=== PATIENT | male | born 1990 | race Caucasian/White ===

== ENCOUNTER 2018-05-23 22:12 | Inpatient (IN) | payer BC ==
[2018-05-23] MEDS ORDERED: HALOPERIDOL 5 MG TABLET PO PRN (23:00)
[2018-05-23] MEDS ORDERED: CLON1 PO (23:19)
[2018-05-23] MEDS ORDERED: GABA-533 PO (23:19)
[2018-05-23] MEDS ORDERED: FLUO-191 PO (23:19)
[2018-05-24] VITALS: BP_SYST 130; BP_SYST 137; BP_DIAS 82; BP_DIAS 84
[2018-05-24] MEDS: LORazepam 2 MG TABLET PO PRN ×3 (00:16→17:11)
[2018-05-24 01:00] VITALS: BP 128/82
[2018-05-24] MEDS ORDERED: LOPERAMIDE HCL 2 MG CAPSULE PO PRN (01:15)
[2018-05-24] MEDS ORDERED: ONDANSETRON HCL 4 MG TABLET PO PRN (01:15)
[2018-05-24] MEDS ORDERED: IBUPROFEN 400 MG TABLET PO PRN (01:15)
[2018-05-24] MEDS ORDERED: MAGNESIUM HYDROXIDE SUSPENSION 30 ML UDCUP PO PRN (01:15)
[2018-05-24] MEDS ORDERED: MAG HYDROX/AL HYDROX/SIMETH ES 30 ML SUSPENSION UDCUP PO PRN (01:15)
[2018-05-24] MEDS ORDERED: PETROLATUM,WHITE 71 GM JELLY TP PRN (01:15)
[2018-05-24] MEDS ORDERED: GuaiFENesin/D-METHORPHAN [SUGAR-FREE] 200-20MG/10 ML SYRUP UDCUP PO PRN (01:15)
[2018-05-24] MEDS ORDERED: ALBUTEROL SULFATE HFA 90 MCG/PUFF 8 GM INHALER IH PRN (01:15)
[2018-05-24] MEDS ORDERED: DOCUSATE SODIUM 100 MG CAPSULE PO PRN (01:15)
[2018-05-24 08:15] VITALS: BP 133/76
[2018-05-24 08:26] LABS: EOSINOPHILS % (AUTO) 3.2 % (1.0-6.0); HEMATOCRIT 45.4 % (41-53); HEMOGLOBIN 15.3 g/dL (13.5-17.5); LYMPHOCYTES # (AUTO) 3.6 K/uL (1.0-4.8); LYMPHOCYTES % (AUTO) 38.1 % (22.0-44.0); MEAN CORPUSCULAR HEMOGLOBIN 31.4 pg (26.0-34.0); MEAN CORPUSCULAR HGB CONC 33.7 G/dL (31.0-37.0); MEAN CORPUSCULAR VOLUME 93 fL (80-100); MONOCYTES # (AUTO) 1.2 K/uL (0.1-1.0); MONOCYTES % (AUTO) 12.8 % (2.0-9.0); NEUTROPHILS # (AUTO) 4.3 K/uL (1.8-7.7); NEUTROPHILS % (AUTO) 45.9 % (40.0-70.0); PLATELET COUNT (AUTO) 267 K/uL (150-450); RED BLOOD CELL COUNT(AUTO) 4.87 MIL/uL (4.50-5.90); RED CELL DISTRIBUTION WIDTH 14.7 % (11.5-14.5)
[2018-05-24 08:33] LABS: HEMOGLOBIN A1C 4.9 % (4.5-6.2)
[2018-05-24 08:39] LABS: ALANINE AMINOTRANSFERASE 26 U/L (12-78); ALBUMIN 3.6 g/dL (3.4-5.0); ALKALINE PHOSPHATASE 54 U/L (46-116); ANION GAP 7 mmol/L (8-16); ASPARTATE AMINOTRANSFERASE 23 U/L (15-37); BILIRUBIN,TOTAL 0.4 mg/dL (0.1-1.0); CALCIUM, TOTAL 8.9 mg/dL (8.8-10.5); CARBON DIOXIDE 30 mmol/L (22-29); CHLORIDE 103 mmol/L (98-107); CHOL/HDL RATIO 4.8 (4.2-7.3); CHOLESTEROL 223 mg/dL (131-200); CREATININE 0.93 mg/dL (0.60-1.30); FREE T4 (FREE THYROXINE) 1.38 ng/dL (0.76-1.46); GLOMERULAR FILTR. RATE CALC > 60 mL/min (>60); GLUCOSE,RANDOM 92 mg/dL (70-110); HDL CHOLESTEROL 46 mg/dL (40-60); LDL CHOL (CALC.) 157 mg/dL (0-130); POTASSIUM 3.7 mmol/L (3.5-5.1); SODIUM SERUM 140 mmol/L (136-145); THYROID STIMULATING HORMONE 3.85 uIU/mL (0.36-3.74); TOTAL PROTEIN, SERUM 7.3 g/dL (6.4-8.2); TRIGLYCERIDES 100 mg/dL (15-150); UREA NITROGEN, BLOOD 16 mg/dL (7-18)
[2018-05-24] MEDS: FLUoxetine HCL 20 MG CAPSULE PO SCH (10:47)
[2018-05-24 16:00] VITALS: BP 140/79
[2018-05-24] MEDS: GABAPENTIN 400 MG CAPSULE PO SCH (16:38)
[2018-05-24] MEDS: QUEtiapine FUMARATE 100 MG TABLET PO SCH (20:33)
[2018-05-24] MEDS: SIMVASTATIN 10 MG TABLET PO SCH (20:33)
[2018-05-24] MEDS: HydrOXYzine PAMOATE 25 MG CAPSULE PO SCH (20:34)
[2018-05-25] VITALS (9 sets, daily range): BP systolic 120–139; BP diastolic 70–98
[2018-05-25] MEDS: FLUoxetine HCL 20 MG CAPSULE PO SCH (08:40)
[2018-05-25] MEDS: GABAPENTIN 400 MG CAPSULE PO SCH ×2 (08:40→16:33)
[2018-05-25] MEDS: LORazepam 2 MG TABLET PO PRN ×3 (08:50→19:27)
[2018-05-25] MEDS: ACETAMINOPHEN 325 MG TABLET PO PRN (10:42)
[2018-05-25] MEDS: QUEtiapine FUMARATE 100 MG TABLET PO SCH (20:34)
[2018-05-25] MEDS: SIMVASTATIN 10 MG TABLET PO SCH (20:35)
[2018-05-25] MEDS: HydrOXYzine PAMOATE 25 MG CAPSULE PO SCH (20:35)
[2018-05-25] MEDS: ZOLPIDEM TARTRATE 10 MG TABLET PO PRN (20:51)
[2018-05-26] VITALS (8 sets, daily range): BP systolic 110–137; BP diastolic 66–84
[2018-05-26] MEDS: LORazepam 2 MG TABLET PO PRN ×4 (03:29→17:09)
[2018-05-26] MEDS: FLUoxetine HCL 20 MG CAPSULE PO SCH (08:49)
[2018-05-26] MEDS: GABAPENTIN 400 MG CAPSULE PO SCH ×2 (08:49→17:06)
[2018-05-26 09:10] LABS: AMPHET/METH SCREEN,URINE NEGATIVE (NEGATIVE); BARBITURATE SCREEN, URINE NEGATIVE (NEGATIVE); BENZODIAZEPINES SCREEN,URINE POSITIVE (NEGATIVE); CANNABINOID SCREEN,URINE NEGATIVE (NEGATIVE); COCAINE SCREEN,URINE NEGATIVE (NEGATIVE); METHADONE SCREEN, URINE NEGATIVE (NEGATIVE); OPIATE SCREEN,URINE NEGATIVE (NEGATIVE); PHENCYCLIDINE SCREEN,URINE NEGATIVE (NEGATIVE)
[2018-05-26 09:35] LABS: APPEARANCE,URINE CLOUDY (CLEAR); BILIRUBIN,URINE NEGATIVE (NEGATIVE); GLUCOSE, URINE (UA) NEGATIVE (NEGATIVE); KETONES,URINE NEGATIVE (NEGATIVE); LEUKOCYTE ESTERASE ,URINE NEGATIVE (NEGATIVE); NITRATE,URINE NEGATIVE (NEGATIVE); OCCULT BLOOD,URINE NEGATIVE (NEGATIVE); PH,URINE 7.5 (5.0-8.0); PROTEIN,URINE POS 1+ (NEGATIVE); UROBILINOGEN,URINE 0.2 mg/dL (<=1.0)
[2018-05-26 09:51] LABS: AMORPHOUS SEDIMENT,UR Many /LPF (None Seen); BACTERIA,URINE None Seen /HPF (None Seen); RBC,URINE None Seen /HPF (0-2); SQUAMOUS EPITHELIAL CELL,UR Rare /LPF (None Seen); WBC,URINE 0-2 /HPF (0-5)
[2018-05-26] MEDS: BUPRENORPHINE HCL/NALOXONE HCL 2-0.5 MG SUBLINGUAL TABLET SL SCH (11:24)
[2018-05-26] MEDS: NICOTINE 14 MG/24 HOUR PATCH TD PRN (14:03)
[2018-05-26] MEDS: QUEtiapine FUMARATE 100 MG TABLET PO SCH (21:06)
[2018-05-26] MEDS: ZOLPIDEM TARTRATE 10 MG TABLET PO PRN (21:06)
[2018-05-26] MEDS: HydrOXYzine PAMOATE 25 MG CAPSULE PO SCH (21:06)
[2018-05-26] MEDS: SIMVASTATIN 10 MG TABLET PO SCH (21:06)
[2018-05-27 00:11] VITALS: BP 115/66
[2018-05-27] MEDS: LORazepam 2 MG TABLET PO PRN ×4 (04:16→20:16)
[2018-05-27 08:28] VITALS: BP 102/60
[2018-05-27] MEDS: GABAPENTIN 400 MG CAPSULE PO SCH ×2 (08:36→16:32)
[2018-05-27] MEDS: FLUoxetine HCL 20 MG CAPSULE PO SCH (08:36)
[2018-05-27] MEDS: BUPRENORPHINE HCL/NALOXONE HCL 2-0.5 MG SUBLINGUAL TABLET SL SCH (08:37)
[2018-05-27 10:52] VITALS: BP 128/84
[2018-05-27] MEDS: NICOTINE 14 MG/24 HOUR PATCH TD PRN (11:44)
[2018-05-27 16:05] VITALS: BP_SYST 112; BP_SYST 73; BP_DIAS 73
[2018-05-27] MEDS: BusPIRone HCL 10 MG TABLET PO SCH (17:09)
[2018-05-27] MEDS: QUEtiapine FUMARATE 100 MG TABLET PO SCH (20:35)
[2018-05-27] MEDS: SIMVASTATIN 10 MG TABLET PO SCH (20:35)
[2018-05-27] MEDS: ZOLPIDEM TARTRATE 10 MG TABLET PO PRN (21:07)
[2018-05-28] VITALS (9 sets, daily range): BP systolic 105–163; BP diastolic 63–93
[2018-05-28] MEDS: LORazepam 2 MG TABLET PO PRN ×3 (04:41→21:32)
[2018-05-28] MEDS: GABAPENTIN 400 MG CAPSULE PO SCH ×2 (08:30→18:41)
[2018-05-28] MEDS: BUPRENORPHINE HCL/NALOXONE HCL 2-0.5 MG SUBLINGUAL TABLET SL SCH (08:30)
[2018-05-28] MEDS: BusPIRone HCL 10 MG TABLET PO SCH ×2 (08:30→18:41)
[2018-05-28] MEDS: FLUoxetine HCL 20 MG CAPSULE PO SCH (08:32)
[2018-05-28] MEDS: ACETAMINOPHEN 325 MG TABLET PO PRN (12:28)
[2018-05-28] MEDS: CloNIDine HCL 0.1 MG TABLET PO PRN (12:28)
[2018-05-28] MEDS ORDERED: RIT20 PO (15:24)
[2018-05-28] MEDS: NICOTINE 14 MG/24 HOUR PATCH TD PRN (19:47)
[2018-05-28] MEDS: SIMVASTATIN 10 MG TABLET PO SCH (20:38)
[2018-05-28] MEDS: QUEtiapine FUMARATE 100 MG TABLET PO SCH (20:39)
[2018-05-28] MEDS: ZOLPIDEM TARTRATE 10 MG TABLET PO PRN (22:16)
[2018-05-29 04:24] VITALS: BP 130/82
[2018-05-29 08:00] VITALS: BP 109/60
[2018-05-29 08:13] VITALS: BP 109/60
[2018-05-29] MEDS: BusPIRone HCL 10 MG TABLET PO SCH ×2 (08:25→16:21)
[2018-05-29] MEDS: FLUoxetine HCL 20 MG CAPSULE PO SCH (08:25)
[2018-05-29] MEDS: BUPRENORPHINE HCL/NALOXONE HCL 2-0.5 MG SUBLINGUAL TABLET SL SCH (08:25)
[2018-05-29] MEDS: GABAPENTIN 400 MG CAPSULE PO SCH ×2 (08:25→16:21)
[2018-05-29] MEDS: NICOTINE 14 MG/24 HOUR PATCH TD SCH (08:26)
[2018-05-29] MEDS: LORazepam 2 MG TABLET PO PRN ×2 (10:39→16:51)
[2018-05-29] MEDS: BuPROPion HCL 100 MG SR TABLET PO SCH (12:03)
[2018-05-29 15:40] VITALS: BP 164/100
[2018-05-29] MEDS ORDERED: MAG HYDROX/AL HYDROX/SIMETH ES 30 ML SUSPENSION UDCUP PO ONE (15:45)
[2018-05-29] MEDS: CloNIDine HCL 0.1 MG TABLET PO PRN (15:51)
[2018-05-29 16:40] VITALS: BP 139/89
[2018-05-29 16:49] VITALS: BP 139/89
[2018-05-29] MEDS: QUEtiapine FUMARATE 100 MG TABLET PO SCH (20:29)
[2018-05-29] MEDS: SIMVASTATIN 10 MG TABLET PO SCH (20:29)
[2018-05-29] MEDS: ZOLPIDEM TARTRATE 10 MG TABLET PO PRN (20:51)
[2018-05-30 00:10] VITALS: BP 110/70
[2018-05-30] MEDS: LORazepam 2 MG TABLET PO PRN ×4 (00:34→23:50)
[2018-05-30 08:00] VITALS: BP 100/66
[2018-05-30 08:04] VITALS: BP 100/66
[2018-05-30] MEDS: GABAPENTIN 400 MG CAPSULE PO SCH ×2 (09:01→16:58)
[2018-05-30] MEDS: BUPRENORPHINE HCL/NALOXONE HCL 2-0.5 MG SUBLINGUAL TABLET SL SCH (09:01)
[2018-05-30] MEDS: FLUoxetine HCL 20 MG CAPSULE PO SCH (09:01)
[2018-05-30] MEDS: BuPROPion HCL 100 MG SR TABLET PO SCH (09:01)
[2018-05-30] MEDS: BusPIRone HCL 10 MG TABLET PO SCH ×2 (09:01→16:58)
[2018-05-30] MEDS: NICOTINE 14 MG/24 HOUR PATCH TD SCH (09:02)
[2018-05-30 16:05] VITALS: BP_SYST 127; BP_SYST 130; BP_DIAS 61; BP_DIAS 69
[2018-05-30 16:09] VITALS: BP 127/69
[2018-05-30] MEDS: QUEtiapine FUMARATE 100 MG TABLET PO SCH (20:02)
[2018-05-30] MEDS: SIMVASTATIN 10 MG TABLET PO SCH (20:02)
[2018-05-30] MEDS: ZOLPIDEM TARTRATE 10 MG TABLET PO PRN (20:28)
[2018-05-30 23:48] VITALS: BP 114/72
[2018-05-31] MEDS ORDERED: ACETAMINOPHEN 325 MG TABLET PO PRN (01:15)
[2018-05-31 05:36] VITALS: BP 110/68
[2018-05-31 08:19] VITALS: BP 111/68
[2018-05-31] MEDS: BusPIRone HCL 10 MG TABLET PO SCH (08:41)
[2018-05-31] MEDS: BuPROPion HCL 100 MG SR TABLET PO SCH (08:41)
[2018-05-31] MEDS: FLUoxetine HCL 20 MG CAPSULE PO SCH (08:41)
[2018-05-31] MEDS: GABAPENTIN 400 MG CAPSULE PO SCH (08:41)
[2018-05-31] MEDS: BUPRENORPHINE HCL/NALOXONE HCL 2-0.5 MG SUBLINGUAL TABLET SL SCH (08:42)
[2018-05-31] MEDS: NICOTINE 14 MG/24 HOUR PATCH TD SCH (08:42)
[2018-05-31] MEDS ORDERED: BUPR100SR PO (11:32)
[2018-05-31] MEDS ORDERED: QUET50TA PO (11:32)
[2018-05-31] MEDS ORDERED: SIMV-259 PO (11:32)
[2018-05-31] MEDS ORDERED: BUSP10TA23 PO (11:32)
== END 2018-05-31 13:15 | disposition home or self-care (01) | DRG 885 ==
LOC: B2X 22:55
PROVIDERS: ADMIT Psychiatry & Neurology Psychiatry; ATTEND Psychiatry & Neurology Psychiatry
DX: F33.2 Major depressive disorder, recurrent severe without psychotic features (principal); F11.20 Opioid dependence, uncomplicated; R45.851 Suicidal ideations; E78.5 Hyperlipidemia, unspecified; F41.9 Anxiety disorder, unspecified; F19.10 Other psychoactive substance abuse, uncomplicated; R10.13 Epigastric pain; R45.87 Impulsiveness; F12.90 Cannabis use, unspecified, uncomplicated; F43.10 Post-traumatic stress disorder, unspecified; G62.9 Polyneuropathy, unspecified; Z79.899 Other long term (current) drug therapy; Z71.51 Drug abuse counseling and surveillance of drug abuser; Z88.1 Allergy status to other antibiotic agents
CPT/HCPCS: 80307; 83036; 84439; 84443; 87081

== ENCOUNTER 2018-05-28 15:07 | Emergency (ER) | payer BC ==
[~2018-05-28] VITALS: Ht 175.3 cm; Wt 84.1 kg
[~2018-05-28 15:07] MED LIST: CLON1 PO; FLUO-191 PO; GABA-533 PO
[2018-05-28] MEDS ORDERED: RIT20 PO (15:24)
[2018-05-28 15:32] LABS: BASOPHILS % (AUTO) 0.7 % (0.0-2.0); EOSINOPHILS % (AUTO) 2.2 % (1.0-6.0); HEMATOCRIT 52.3 % (41-53); HEMOGLOBIN 17.6 g/dL (13.5-17.5); LYMPHOCYTES # (AUTO) 3.2 K/uL (1.0-4.8); LYMPHOCYTES % (AUTO) 34.6 % (22.0-44.0); MEAN CORPUSCULAR HEMOGLOBIN 31.3 pg (26.0-34.0); MEAN CORPUSCULAR HGB CONC 33.6 G/dL (31.0-37.0); MEAN CORPUSCULAR VOLUME 93 fL (80-100); MONOCYTES # (AUTO) 0.7 K/uL (0.1-1.0); MONOCYTES % (AUTO) 7.3 % (2.0-9.0); NEUTROPHILS # (AUTO) 5.1 K/uL (1.8-7.7); NEUTROPHILS % (AUTO) 55.2 % (40.0-70.0); PLATELET COUNT (AUTO) 284 K/uL (150-450); RED CELL DISTRIBUTION WIDTH 14.3 % (11.5-14.5)
[2018-05-28 15:42] LABS: ANION GAP 9 mmol/L (8-16); CALCIUM, TOTAL 9.1 mg/dL (8.8-10.5); CARBON DIOXIDE 31 mmol/L (22-29); CHLORIDE 101 mmol/L (98-107); CREATININE 1.07 mg/dL (0.60-1.30); GLOMERULAR FILTR. RATE CALC > 60 mL/min (>60); GLUCOSE,RANDOM 93 mg/dL (70-110); POTASSIUM 3.9 mmol/L (3.5-5.1); SODIUM SERUM 141 mmol/L (136-145); UREA NITROGEN, BLOOD 17 mg/dL (7-18)
[2018-05-28 15:46] LABS: APPEARANCE,URINE CLOUDY (CLEAR); BILIRUBIN,URINE NEGATIVE (NEGATIVE); GLUCOSE, URINE (UA) NEGATIVE (NEGATIVE); KETONES,URINE NEGATIVE (NEGATIVE); LEUKOCYTE ESTERASE ,URINE NEGATIVE (NEGATIVE); NITRATE,URINE NEGATIVE (NEGATIVE); OCCULT BLOOD,URINE LARGE (NEGATIVE); PH,URINE 7.5 (5.0-8.0); PROTEIN,URINE TRACE (NEGATIVE); UROBILINOGEN,URINE 0.2 mg/dL (<=1.0)
[2018-05-28 15:48] LABS: ALANINE AMINOTRANSFERASE 38 U/L (12-78); ALKALINE PHOSPHATASE 71 U/L (46-116); ASPARTATE AMINOTRANSFERASE 22 U/L (15-37); BILIRUBIN,TOTAL 0.4 mg/dL (0.1-1.0); LIPASE 216 U/L (73-393); TOTAL PROTEIN, SERUM 7.9 g/dL (6.4-8.2)
[2018-05-28 15:50] LABS: AMPHET/METH SCREEN,URINE NEGATIVE (NEGATIVE); BARBITURATE SCREEN, URINE NEGATIVE (NEGATIVE); BENZODIAZEPINES SCREEN,URINE POSITIVE (NEGATIVE); CANNABINOID SCREEN,URINE NEGATIVE (NEGATIVE); COCAINE SCREEN,URINE NEGATIVE (NEGATIVE); METHADONE SCREEN, URINE NEGATIVE (NEGATIVE); OPIATE SCREEN,URINE NEGATIVE (NEGATIVE); PHENCYCLIDINE SCREEN,URINE NEGATIVE (NEGATIVE)
[2018-05-28 15:54] LABS: BACTERIA,URINE Few /HPF (None Seen); WBC,URINE 0-2 /HPF (0-5)
[2018-05-28 15:55] LABS: SQUAMOUS EPITHELIAL CELL,UR Few /LPF (None Seen)
[2018-05-28 15:56] LABS: AMORPHOUS SEDIMENT,UR Few /LPF (None Seen)
[2018-05-28] MEDS ORDERED: ONDANSETRON HCL 4 MG/2 ML VIAL IM ONE (16:15)
[2018-05-28] MEDS ORDERED: KETOROLAC TROMETHAMINE 30 MG/ML VIAL IM ONE (16:15)
[2018-05-28] MEDS ORDERED: ClonazePAM 1 MG TABLET PO ONE (17:30)
[2018-05-28] MEDS ORDERED: METHYLPHENIDATE HCL 10 MG TABLET PO ONE (17:30)
[2018-05-28 18:00] VITALS: BP 138/85
== END 2018-05-28 18:34 | disposition home or self-care (01) ==
LOC: EMS 15:08
DX: R10.9 Unspecified abdominal pain (principal); R31.9 Hematuria, unspecified; F41.9 Anxiety disorder, unspecified; F32.9 Major depressive disorder, single episode, unspecified; F17.210 Nicotine dependence, cigarettes, uncomplicated; Z88.2 Allergy status to sulfonamides; Z88.8 Allergy status to other drugs, medicaments and biological substances; Z79.899 Other long term (current) drug therapy
CPT/HCPCS: 36415; 74176; 80053; 80307; 81001; 83690; 85025; 96372; 99285; J1885; J2405